=== PATIENT | female | born 1965 | race Caucasian/White ===

== ENCOUNTER 2016-05-25 23:28 | Inpatient (IN) | payer MEDICARE, OTHER ==
[~2016-05-25] VITALS: Ht 162.6 cm; Wt 176.0 kg
[2016-05-26 00:21] LABS: BASO % 1 % (0-3); EOS % 0 % (0-3); HEMATOCRIT 37.8 % (36.0-47.0); HEMOGLOBIN 12.3 g/dL (12.0-15.5); LYMPH % 22 % (24-48); MEAN CORPUSCULAR HEMOGLOBIN 30 pg (25-35); MEAN CORPUSCULAR HGB CONC 33 g/dL (31-37); MEAN CORPUSCULAR VOLUME 91 fL (79-100); MONO % 10 % (0-9); NEUT % 67 % (31-73); PLATELET COUNT 374 x10^3/uL (140-400); RED BLOOD COUNT 4.16 x10^6/uL (3.50-5.40); RED CELL DISTRIBUTION WIDTH 15.6 % (11.5-14.5); WHITE BLOOD COUNT 4.6 x10^3/uL (4.0-11.0)
[2016-05-26 00:28] LABS: BILIRUBIN,URINE NEGATIVE (NEG); GLUCOSE,URINE NEGATIVE (NEG); NITRITE,URINE NEGATIVE (NEG); PROTEIN,URINE 30 mg/dL (NEG-TRACE); UROBILINOGEN,URINE 0.2 mg/dL (0.2 mg/dL)
[2016-05-26] MEDS ORDERED: IV NORMAL SALINE 1000ML BAG 1,000 ML IV ONE (00:30)
[2016-05-26] MEDS ORDERED: KETOROLAC 15 MG/ML VIAL. IV ONE (00:30)
[2016-05-26] MEDS ORDERED: ONDANSETRON PF 4 MG/2 ML VIAL. IV ONE (00:30)
[2016-05-26 00:34] LABS: BACTERIA,URINE 0 /HPF (0-FEW); SQUAMOUS EPITHELIAL CELL,UR FEW /LPF; WBC,URINE 0 /HPF (0-4)
[2016-05-26 00:35] LABS: OBC FLU VALID
[2016-05-26 01:10] LABS: CALCIUM 8.8 mg/dL (8.5-10.1); CREATININE 3.6 mg/dL (0.6-1.0); GFR 13.2; POTASSIUM 3.7 mmol/L (3.5-5.1)
[2016-05-26 01:16] LABS: ALBUMIN 3.5 g/dL (3.4-5.0); TOTAL BILIRUBIN 0.2 mg/dL (0.2-1.0); TOTAL PROTEIN 6.9 g/dL (6.4-8.2)
[2016-05-26] MEDS ORDERED: ONDANSETRON PF 4 MG/2 ML VIAL. IV PRN ×2 (02:00→09:05)
[2016-05-26] MEDS ORDERED: ACETAMINOPHEN 325 MG TABLET. PO PRN (02:00)
[2016-05-26] MEDS: IV NORMAL SALINE 1000ML BAG 1,000 ML IV SCH ×3 (04:55→22:13)
--- NOTE | 2016-05-26 05:26 | PHYS DOC ---
Past Medical History Past Medical History: Depression, Fibromyalgia, Hypertension Additional Past Medical Histor: interstitial cystitis insomnia leg cramps urinary incontence Past Surgical History: Tubal ligation Additional Past Surgical Histo: left knee replacement lap. band sx Alcohol Use: None Drug Use: None Adult General Chief Complaint Chief Complaint: ANXIETY/PANIC ATTACK HPI HPI Patient is a 51 year old female with a history significant for hypertension, CHF, status post lap band who presents to the ER today complaining of feeling fuzzy, congested in her chest, having pain all over, feels dehydrated, decreased by mouth intake for several days, fevers to 103 at home, diarrhea, nonproductive cough. Patient denies any vomiting. Denies any dysuria frequency or urgency. Patient reports she's had decreased urinary output over the last couple days. Patient's primary care doctor is Dr. Judy Wright. Patient denies abdominal pain. Patient denies any chest pain. Patient's physical exam was remarkable for dry mucous membranes. Abdomen was soft nondistended no rebound or guarding. Patient is morbidly obese. Patient NABS.. Patient is alert awake oriented 3. Moving all extremities well. Nonfocal neuro exam. Patient's ER hospital course was significant for acute renal failure with hyponatremia. Patient's creatinine is greater than 3.0 and I do not have an old creatinine to compare with. Patient reports that she has been told that she has some mild kidney disease however she does not recall what her creatinine is. Patient was given IV fluids in the ER and will be admitted for hydration and evaluation of her elevated creatinine. This is a 51-year-old female who presents here today secondary to generalized malaise and dehydration who was found to have a significantly elevated creatinine. This may be secondary to dehydration versus primary renal disease. Patient was admitted to the hospital for further evaluation of her acute renal failure. Patient will be hydrated and her creatinine will be reassessed in the morning. Case was discussed with . Review of Systems Review of Systems Constitutional: Denies fever or chills [] Eyes: Denies change in visual acuity, redness, or eye pain [] All other review systems are negative except as documented in the history of present illness. Current Medications Current Medications Current Medications Medications (Trade) Dose Ordered Sig/Consuelo Start Time Stop Time Status Last Admin Dose Admin Ketorolac Tromethamine (Toradol) 15 mg 1X ONCE 05/26/16 00:30 05/26/16 00:31 DC 05/26/16 00:30 15 MG Ondansetron HCl (Zofran) 4 mg 1X ONCE 05/26/16 00:30 05/26/16 00:31 DC 05/26/16 00:30 4 MG Sodium Chloride (Iv Sodium Chloride 0.9% 1000ml Bag) 1,000 ml @ 1,000 mls/hr 1X ONCE 05/26/16 00:30 05/26/16 01:29 DC 05/26/16 00:30 1,000 MLS/HR Allergies Allergies Allergies Coded Allergies Type Severity Reaction Last Updated Verified No Known Drug Allergies 05/26/16 No Physical Exam Physical Exam Constitutional: Well developed, well nourished, no acute distress, non-toxic appearance. [] HENT: Normocephalic, atraumatic, bilateral external ears normal, oropharynx moist, no oral exudates, nose normal. [] Eyes: PERRLA, EOMI, conjunctiva normal, no discharge. [] Neck: Normal range of motion, no tenderness, supple, no stridor. [] Cardiovascular:Heart rate regular rhythm, no murmur [] Lungs & Thorax: Bilateral breath sounds clear to auscultation [] Abdomen: Bowel sounds normal, soft, no tenderness, no masses, no pulsatile masses. [] Skin: Warm, dry, no erythema, no rash. [] Back: No tenderness, no CVA tenderness. [] Extremities: No tenderness, no cyanosis, no clubbing, ROM intact, no edema. [] Neurologic: Alert and oriented X 3, normal motor function, normal sensory function, no focal deficits noted. [] Psychologic: Affect normal, judgement normal, mood normal. [] Current Patient Data Vital Signs Vital Signs Date Time Temp Pulse Resp B/P Pulse Ox O2 Delivery O2 Flow Rate FiO2 05/26/16 01:30 94 17 137/65 94 Room Air 05/26/16 00:03 98.5 98.5 Lab Values Laboratory Tests Test 05/26/16 00:05 05/26/16 00:40 White Blood Count 4.6x10^3/uL (4.0-11.0) Red Blood Count 4.16x10^6/uL (3.50-5.40) Hemoglobin 12.3g/dL (12.0-15.5) Hematocrit 37.8% (36.0-47.0) Mean Corpuscular Volume 91fL (79-100) Mean Corpuscular Hemoglobin 30pg (25-35) Mean Corpuscular Hemoglobin Concent 33g/dL (31-37) Red Cell Distribution Width 15.6% (11.5-14.5) H Platelet Count 374x10^3/uL (140-400) Neutrophils (%) (Auto) 67% (31-73) Lymphocytes (%) (Auto) 22% (24-48) L Monocytes (%) (Auto) 10% (0-9) H Eosinophils (%) (Auto) 0% (0-3) Basophils (%) (Auto) 1% (0-3) Neutrophils # (Auto) 3.1x10^3uL (1.8-7.7) Lymphocytes # (Auto) 1.0x10^3/uL (1.0-4.8) Monocytes # (Auto) 0.5x10^3/uL (0.0-1.1) Eosinophils # (Auto) 0.0x10^3/uL (0.0-0.7) Basophils # (Auto) 0.0x10^3/uL (0.0-0.2) Urine Collection Type U cath Urine Color Yellow Urine Clarity Turbid Urine pH 5.0 Urine Specific [place] 1.025 Urine Protein 30mg/dL (NEG-TRACE) Urine Glucose (UA) Negativemg/dL (NEG) Urine Ketones (Stick) Negativemg/dL (NEG) Urine Blood Moderate (NEG) Urine Nitrite Negative (NEG) Urine Bilirubin Negative (NEG) Urine Urobilinogen Dipstick 0.2mg/dL (0.2 mg/dL) Urine Leukocyte Esterase Negative (NEG) Urine RBC 3-5/HPF (0-2) Urine WBC 0/HPF (0-4) Urine Squamous Epithelial Cells Few/LPF Urine Amorphous Sediment Present/HPF Urine Bacteria 0/HPF (0-FEW) Urine Mucus Mod/LPF Influenza Type A Antigen Negative (NEGATIVE) Influenza Type B Antigen Negative (NEGATIVE) Sodium Level 130mmol/L (136-145) L Potassium Level 3.7mmol/L (3.5-5.1) Chloride Level 92mmol/L (98-107) L Carbon Dioxide Level 21mmol/L (21-32) Anion Gap 17 (6-14) H Blood Urea Nitrogen 42mg/dL (7-20) H Creatinine 3.6mg/dL (0.6-1.0) H Estimated GFR (Cockcroft-Gault) 13.2 BUN/Creatinine Ratio 12 (6-20) Glucose Level 129mg/dL (70-99) H Calcium Level 8.8mg/dL (8.5-10.1) Total Bilirubin 0.2mg/dL (0.2-1.0) Aspartate Amino Transferase (AST) 54U/L (15-37) H Alanine Aminotransferase (ALT) 47U/L (14-59) Alkaline Phosphatase 120U/L (46-116) H Total Protein 6.9g/dL (6.4-8.2) Albumin 3.5g/dL (3.4-5.0) Albumin/Globulin Ratio 1.0 (1.0-1.7) Laboratory Tests 05/26/16 00:05 Laboratory Tests 05/26/16 00:40 EKG EKG [] Radiology/Procedures Radiology/Procedures [] Course & Med Decision Making Course & Med Decision Making Pertinent Labs and Imaging studies reviewed. (See chart for details) [] Dragon Disclaimer Dragon Disclaimer This electronic medical record was generated, in whole or in part, using a voice recognition dictation system. Departure Departure Impression: Primary Impression: ARF (acute renal failure) Additional Impressions: Hyponatremia Dehydration Disposition: 09 ADMITTED INPATIENT Admitting Physician: Vianney Santos Condition: GUARDED Referrals: NO PCP (PCP) Problem Qualifiers TRAVIS RAZO MD May 26, 2016 05:26
--- NOTE | 2016-05-26 06:38 | EKG ---
[facility] [address] [place] [address] Test Date: 2016-05-25 Test Time: 23:37:30 Pat Name: EUGENE HERRERA Department: Room: 648 1 Gender: F System Development Engineer: : 1965 Requested By: DAVID ORTIZ Order Number: [id number] Reading MD: Sukhjinder Hallman Measurements Intervals [place] Rate: 95 P: 62 IA: 136 QRS: 4 QRSD: 78 T: -1 QT: 324 QTc: 410 Interpretive Statements SINUS RHYTHM NONSPECIFIC ST-T WAVE CHANGES. RI6.01 Unconfirmed report No previous ECG available for comparison Electronically Signed On 05-29-2016 13:52:34 RN ADVANCED by Sukhjinder Hallman
[2016-05-26 07:00] VITALS: BP 100/51
--- NOTE | 2016-05-26 07:31 | RAD ---
Exam performed: One view chest. Indication: cough x tonight Date of Service: 05/26/2016 2:09 AM Comparison: 05/26/16. Single AP upright portable view chest findings: Cardiomediastinal silhouette is within limits of normal. No acute infiltrates, effusion or pneumothorax is detected. Calcified lymph node in the right hilum. The bony structures are normal. Impression: No acute cardiopulmonary process is detected.
--- NOTE | 2016-05-26 07:58 | ACF ---
Admit Criteria Forms Admit Criteria Forms Admit Criteria Forms RENAL FAILURE, ACUTE Clinical Indications for Admission to Inpatient Care ( Place 'X' for any and all applicable criteria): Admission is indicated for ALL (if I & II) or III of the following [A](2)(3)(4)( 5)(6)(7): [X]I. Acute renal failure as indicated by ANY ONE of the following: [X]a) A 3-fold rise in serum creatinine from baseline [ ]b) Serum creatinine greater than 4 mg/dL (354 micromoles/L) with an acute rise greater than 0.5 mg/dL (44.2 micromoles/L) [ ]c) Reduction of more than 75% in estimated glomerular filtration rate from baseline [ ]d) Estimated glomerular filtration rate less than 35 mL/min/1.73m2 (0.59mL/sec/1.73m2)in a child up to 18 years of age [ ]e) Anuria indicated by ALL of the following: [ ]i) Adequate volume status [ ]ii) Cessation of urine output indicated by ANY ONE of the following: [ ]1) Urine output less than 0.3 mL/kg/hr for 24 hours [ ]2) Anuria (urine output less than 0.1 mL/kg/ hr) for 12 hours [X] II. Renal failure cannot be managed in an outpatient setting or observational care setting as indicating by ANY ONE of the following: [ ]a) Altered mental status that is severe or persistent [ ]b) Volume overload or Respiratory distress (eg, clinically significant pulmonary edema) that is severe or persistent [ ]c) Cardiac arrhythmias of immediate concern [ ]d) Hemodynamic instability [ ]e) Clinically significant electrolyte abnormality that requires inpatient care (eg, hyperkalemia with severe ECG findings)[B] [ ]f) Clinically significant metabolic abnormality (eg, acidosis) that is severe or persistent [ ]g) Acute treatment of renal failure (eg, renal replacement therapy) not feasible or appropriate in observational care setting [ ]h) Clinical situation too unstable or uncertain (eg, inadequate urine output, ongoing decline in renal function, etiology unclear) [ ]i) Necessary support and caregiver ability to comply with outpatient treatment cannot be arranged in observation care timeframe (eg, within 24 hours) [X]j) Other significant finding or clinical condition judged not to be within scope of observation care [ ]III.General contraindications and/or Inappropriate clinical situations for Observational Care in patients with Acute Renal Failure, when ANY ONE of the following is required: [ ]a) Prediction of prolongation of LOS based on ANY ONE of the following may be considered as a contraindication for observational care 2, 3, 4, 5, 6, 7, 8 , 9, 10, 11 [ ]i) Age > 65 yrs. [ ]ii) Patient arriving by ambulance [ ]iii) Patient with high acuity [ ]iv) Patient requiring vital sign monitoring [ ]v) Patient on IV medication [ ]b) Systolic blood pressures 180mmHg 3,12 [ ]c) Patient with altered mental status including delirium and other alteration of consciousness, (3) [ ]d) Patient whose discharge disposition will be to a shelter home or rehabilitation home should not be managed in Emergency Department Observation Unit. CMS rule requires 3 days hospital stay before such placement.3,13 [ ]e) Patient with failure to thrive due to broad array of etiologies 3, 16,17 [ ]f) Inability to ambulate 3,14 Extended stay beyond goal length of stay may be needed for(13) [ ]a) Continuing uremic complications [ ]b) Care for comorbidities [ ]c) acute renal failure [ ]d) Need for dialysis The original [employer] content created by [employer] has been revised. The portions of the content which have been revised are identified through the use of italic text or in bold, and [facility] has neither reviewed nor approved the modified material. All other unmodified content is copyright [employer]. Please see references footnoted in the original [employer] edition 2016 VIANCA CHU May 26, 2016 07:58
[2016-05-26] MEDS ORDERED: DESV100T PO (08:48)
[2016-05-26] MEDS ORDERED: PARO20TA55 PO (08:49)
[2016-05-26] MEDS ORDERED: OMEP20TA63 PO (09:02)
[2016-05-26] MEDS ORDERED: HYDR-2672 PO (09:02)
[2016-05-26] MEDS ORDERED: DILT120C97 PO (09:02)
[2016-05-26] MEDS ORDERED: GABA-586 PO (09:02)
[2016-05-26] MEDS ORDERED: DEXT5TAB27 PO (09:02)
[2016-05-26] MEDS ORDERED: ALPR2TAB2 PO (09:02)
[2016-05-26] MEDS ORDERED: GABA600T2 PO ×2 (09:02)
[2016-05-26] MEDS ORDERED: LISI1TAB7 PO (09:02)
[2016-05-26] MEDS ORDERED: ARIP5TAB6 PO (09:02)
[2016-05-26] MEDS ORDERED: CARI250T PO (09:02)
[2016-05-26] MEDS ORDERED: ZOLP5TAB PO (09:02)
[2016-05-26] MEDS ORDERED: MIRT45TA3 PO (09:02)
[2016-05-26] MEDS ORDERED: TRAZ300T2 PO (09:02)
[2016-05-26] MEDS ORDERED: ALPRAZOLAM 1 MG TABLET PO PRN (09:30)
[2016-05-26] MEDS ORDERED: CARISOPRODOL 350 MG TABLET PO PRN (09:30)
[2016-05-26] MEDS: DESVENLAFAXINE 50 MG TAB.ER.24H. PO SCH (09:50)
[2016-05-26] MEDS: DILTIAZEM HCL 120 MG CAP.ER.24H PO SCH (09:50)
[2016-05-26] MEDS: GABAPENTIN 300 MG CAPSULE. PO SCH ×3 (09:50→20:12)
[2016-05-26] MEDS: PANTOPRAZOLE 40 MG TABLET. PO SCH (09:50)
[2016-05-26] MEDS: HYDROCODONE/APAP 10/325 TABLET. PO PRN ×3 (09:50→20:12)
[2016-05-26] MEDS: PAROXETINE 20 MG TABLET. PO SCH (09:50)
[2016-05-26 11:00] VITALS: BP 107/40
--- NOTE | 2016-05-26 11:55 | PDOC1 ---
History and Physical Date of Admission Date of Admission DATE: 05/26/16 TIME: 11:47 Identification/Chief Complaint Chief Complaint chills at home Source Source: Chart review, Patient History of Present Illness History of Present Illness 51 y.o F morbidly obese comes in bec she thinks she has "another episode of her interstitial cystitis". She started to have cystitis in 2009 and she would " know when it was coming", would have chills, and urinary incontinence. She has a bedside commode. She claims he gets so weak she cant stand up and leave home to go to urgent care, HEr roomate called 911 after coaxing. LAbs DO NOT show UTI but did show gap acidosis with gap 17. 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 rajesh Na 130s, but need to document UOP > 3 L a day and test of choice would be water deprivation test then check urine osm Past Medical History Renal/: Hematuria, Other (interstitial nephritis) Past Surgical History Past Surgical History: No pertinent history Family History Family History: No Significant Social History Smoke: No ALCOHOL: none Drugs: None Current Problem List Problem List Problems Medical Problems: (1) ARF (acute renal failure) Status: Acute (2) Dehydration Status: Acute (3) Hyponatremia Status: Acute Problems: Current Medications Current Medications Current Medications Sodium Chloride (Iv Sodium Chloride 0.9% 1000ml Bag) 1,000 ml @ 1,000 mls/hr 1X ONCE IV Last administered on 05/26/16 00:30; Start 05/26/16 at 00:30; Stop 05/26/16 at 01:29; Status DC Ondansetron HCl (Zofran) 4 mg 1X ONCE IV Last administered on 05/26/16 00:30; Start 05/26/16 at 00:30; Stop 05/26/16 at 00:31; Status DC Ketorolac Tromethamine (Toradol) 15 mg 1X ONCE IV Last administered on 00:30; Start 05/26/16 at 00:30; Stop 05/26/16 at 00:31; Status DC Ondansetron HCl 4 mg 4 mg PRN Q8HRS PRN IV NAUSEA/VOMITING; Start 05/26/16 at 02 :00; Stop 05/26/16 at 09:07; Status DC Sodium Chloride (Iv Sodium Chloride 0.9% 1000ml Bag) 1,000 ml @ 125 mls/hr Q8H IV Last administered on 05/26/16 04:55; Start 05/26/16 at 01:58; Stop 05/27/16 at 01:57 Acetaminophen (Tylenol) 650 mg PRN Q4HRS PRN PO FEVER; Start 05/26/16 at 02:00; Stop 05/27/16 at 01:59 Ondansetron HCl (Zofran) 4 mg PRN Q6HRS PRN IV NAUSEA/VOMITING; Start 05/26/16 at 09:05 Aripiprazole (Abilify) 5 mg QHS PO ; Start 05/26/16 at 21:00 Diltiazem HCl (Cardizem 24hr Cd) 120 mg DAILY PO Last administered on 05/26/16 09:50; Start 05/26/16 at 10:00 Gabapentin (Neurontin) 300 mg BID@09,15 PO Last administered on 05/26/16 09:50 ; Start 05/26/16 at 10:00 Acetaminophen/ Hydrocodone Bitart (Lortab 10/325) 1 tab PRN Q6HRS PRN PO PAIN Last administered on 05/26/16 09:50; Start 05/26/16 at 09:15 Paroxetine HCl (Paxil) 20 mg DAILY PO Last administered on 05/26/16 09:50; Start 05/26/16 at 10:00 Zolpidem Tartrate (Ambien) 5 mg QHS PO ; Start 05/26/16 at 21:00 Alprazolam (Xanax) 2 mg PRN BID PRN PO ANXIETY / AGITATION; Start 05/26/16 at 09 :30 Carisoprodol (Soma) 350 mg PRN 1X PRN PO MUSCLE SPASMS; Start 05/26/16 at 09:30 Desvenlafaxine Succinate (Pristiq Er) 100 mg DAILY PO Last administered on 09:50; Start 05/26/16 at 10:00 Non-Formulary Medication 5 mg BID PO ; Start 05/26/16 at 21:00; Status UNV Gabapentin (Neurontin) 600 mg QHS PO ; Start 05/26/16 at 21:00 Mirtazapine (Remeron) 45 mg QHS PO ; Start 05/26/16 at 21:00 Pantoprazole Sodium (Protonix) 40 mg DAILYAC PO Last administered on 05/26/16t 09:50; Start 05/26/16 at 10:00 Trazodone HCl (Desyrel) 300 mg QHS PO ; Start 05/26/16 at 21:00 Active Scripts Active Reported Abilify (Aripiprazole) 5 Mg Tablet 5 Mg PO QHS Soma (Carisoprodol) 250 Mg Tablet 250 Mg PO 1X PRN PRN Ambien (Zolpidem Tartrate) 5 Mg Tablet 1 Tab PO QHS Trazodone Hcl 300 Mg Tablet 1 Tab PO QHS Mirtazapine 45 Mg Tablet 1 Tab PO QHS Gabapentin 600 Mg Tablet 600 Mg PO QHS Gabapentin 300 Mg Capsule 300 Mg PO BID Xanax (Alprazolam) 2 Mg Tablet 1 Tab PO BID PRN Hydrocodone-Apap 10-325 (Hydrocodone Bit/Acetaminophen) 1 Each Tablet 1 Tab PO PRN Q6HRS PRN Adderall 5 Mg Tablet (Dextroamphetamine/Amphetamine) 5 Mg Tablet 5 Mg PO BID Prilosec Otc (Omeprazole Magnesium) 20 Mg Tablet.dr 1 Tab PO DAILY Diltiazem 24HR Cd (Diltiazem Hcl) 120 Mg Cap.er.24h 1 Cap PO DAILY Lisinopril-Hctz 20-25 Mg Tab (Lisinopril/Hydrochlorothiazide) 1 Each Tablet 1 Tab PO DAILY Paxil (Paroxetine Hcl) 20 Mg Tablet 1 Tab PO DAILY Pristiq Er (Desvenlafaxine Succinate) 100 Mg Tab.er.24h 1 Tab PO DAILY Allergies Allergies: Coded Allergies: No Known Drug Allergies (Unverified , 05/26/16) ROS General: YES: Chills PSYCHOLOGICAL ROS: No: Anxiety, Behavioral Disorder, Concentration difficultie , Decreased libido, Depression, Disorientation, Hallucinations, Hostility, Irritablity, Memory difficulties, Mood Swings, Obsessive thoughts, Other, Physical abuse, Sexual abuse, Sleep disturbances, Suicidal ideation Eyes: No Blurry vision, No Decreased vision, No Double vision, No Dry eyes, No Excessive tearing, No Eye Pain, No Itchy Eyes, No Loss of vision, No Other, No Photophobia, No Scotomata, No Uses contacts, No Uses glasses HEENT: No: Epistaxis, Heacaches, Hearing change, Nasal congestion, Nasal discharge, Oral lesions, Other, Sinus pain, Sneezing, Snoring, Sore Throat, Tinnitus, Vertigo, Visual Changes, Vocal changes ALLERGY AND IMMUNOLOGY: No: Hives, Insect Bite Sensitivity, Itchy/Watery Eyes, Nasal Congestion, Other, Post Nasal Drip, Seasonal Allergies Hematological and Lymphatic: No: Bleeding Problems, Blood Clots, Blood Transfusions, Brusing, Night Sweats, Other, Pallor, Swollen Lymph Nodes ENDOCRINE: No: Breast Changes, Galactorrhea, Hair Pattern Changes, Hot Flashes , Malaise/lethargy, Mood Swings, Other, Palpitations, Polydipsia/polyuria, Skin Changes, Temperature Intolerance, Unexpected Weight Changes Respiratory: No: Cough, Hemoptysis, Orthopnea, Other, Pleuritic Pain, SOB with excertion, Shortness of breath, Sputum Changes, Stridor, Tachypnea, Wheezing Cardiovascular: No Chest Pain, No Edema, No Lt Headedness, No Orthopnea, No Other, No Palpitations, No Paroxysmal Noc. Dyspnea Gastrointestinal: No Abdominal Pain, No Constipation, No Diarrhea, No Hematochezia, No Melena, No Nausea, No Other, No Vomiting Genitourinary: YES Other (polyuria) Neurological: No Behavorial Changes, No Bowel/Bladder ControlChng, No Confusion , No Dizziness, No Gait Disturbance, No Headaches, No Impaired Coord/balance, No Memory Loss, No Numbness/Tingling, No Other, No Seizures, No Speech Problems , No Tremors, No Visual Changes, No Weakness Skin: No Acne, No Dry Skin, No Eczema, No Hair Changes, No Lumps, No Mole Changes, No Mottling, No Nail Changes, No Other, No Pruritus, No Rash, No Skin Lesion Changes Physical Exam General: Alert, Oriented X3, Cooperative, No acute distress, Other (morbidly obese) HEENT: Atraumatic, PERRLA Lungs: Clear to auscultation Heart: S1S2 Cardiovascular: S1, S2 Breasts: Normal Abdomen: Normal bowel sounds, Soft, No tenderness, No hepatosplenomegaly, No masses Male Genitals Exam: normal genitalia, normal prostate Rectal Exam: not examined PELVIC: Nml ext genitalia Extremities: No clubbing, No cyanosis, No edema, Normal pulses, No tenderness/ swelling Skin: No rashes, No breakdown, No significant lesion Neuro: Normal gait, Normal speech, Strength at 5/5 X4 ext, Normal tone, Sensation intact, Cranial nerves 3-12 NL, Reflexes 2+ Psych/Mental Status: Mental status NL, Mood NL Vitals Vitals Vital Signs Date Time Temp Pulse Resp B/P Pulse Ox O2 Delivery O2 Flow Rate FiO2 05/26/16 09:50 94 Room Air 05/26/16 09:50 91 100/51 05/26/16 07:00 97.7 20 97.7 Labs Labs Laboratory Tests Test 05/26/16 00:05 05/26/16 00:40 White Blood Count 4.6x10^3/uL (4.0-11.0) Red Blood Count 4.16x10^6/uL (3.50-5.40) Hemoglobin 12.3g/dL (12.0-15.5) Hematocrit 37.8% (36.0-47.0) Mean Corpuscular Volume 91fL (79-100) Mean Corpuscular Hemoglobin 30pg (25-35) Mean Corpuscular Hemoglobin Concent 33g/dL (31-37) Red Cell Distribution Width 15.6% (11.5-14.5) Platelet Count 374x10^3/uL (140-400) Neutrophils (%) (Auto) 67% (31-73) Lymphocytes (%) (Auto) 22% (24-48) Monocytes (%) (Auto) 10% (0-9) Eosinophils (%) (Auto) 0% (0-3) Basophils (%) (Auto) 1% (0-3) Neutrophils # (Auto) 3.1x10^3uL (1.8-7.7) Lymphocytes # (Auto) 1.0x10^3/uL (1.0-4.8) Monocytes # (Auto) 0.5x10^3/uL (0.0-1.1) Eosinophils # (Auto) 0.0x10^3/uL (0.0-0.7) Basophils # (Auto) 0.0x10^3/uL (0.0-0.2) Urine Collection Type U cath Urine Color Yellow Urine Clarity Turbid Urine pH 5.0 Urine Specific [place] 1.025 Urine Protein 30mg/dL (NEG-TRACE) Urine Glucose (UA) Negativemg/dL (NEG) Urine Ketones (Stick) Negativemg/dL (NEG) Urine Blood Moderate (NEG) Urine Nitrite Negative (NEG) Urine Bilirubin Negative (NEG) Urine Urobilinogen Dipstick 0.2mg/dL (0.2 mg/dL) Urine Leukocyte Esterase Negative (NEG) Urine RBC 3-5/HPF (0-2) Urine WBC 0/HPF (0-4) Urine Squamous Epithelial Cells Few/LPF Urine Amorphous Sediment Present/HPF Urine Bacteria 0/HPF (0-FEW) Urine Mucus Mod/LPF Influenza Type A Antigen Negative (NEGATIVE) Influenza Type B Antigen Negative (NEGATIVE) Sodium Level 130mmol/L (136-145) Potassium Level 3.7mmol/L (3.5-5.1) Chloride Level 92mmol/L (98-107) Carbon Dioxide Level 21mmol/L (21-32) Anion Gap 17 (6-14) Blood Urea Nitrogen 42mg/dL (7-20) Creatinine 3.6mg/dL (0.6-1.0) Estimated GFR (Cockcroft-Gault) 13.2 BUN/Creatinine Ratio 12 (6-20) Glucose Level 129mg/dL (70-99) Calcium Level 8.8mg/dL (8.5-10.1) Total Bilirubin 0.2mg/dL (0.2-1.0) Aspartate Amino Transf (AST/SGOT) 54U/L (15-37) Alanine Aminotransferase (ALT/SGPT) 47U/L (14-59) Alkaline Phosphatase 120U/L (46-116) Total Protein 6.9g/dL (6.4-8.2) Albumin 3.5g/dL (3.4-5.0) Albumin/Globulin Ratio 1.0 (1.0-1.7) Laboratory Tests Test 05/26/16 00:05 05/26/16 00:40 White Blood Count 4.6x10^3/uL (4.0-11.0) Red Blood Count 4.16x10^6/uL (3.50-5.40) Hemoglobin 12.3g/dL (12.0-15.5) Hematocrit 37.8% (36.0-47.0) Mean Corpuscular Volume 91fL (79-100) Mean Corpuscular Hemoglobin 30pg (25-35) Mean Corpuscular Hemoglobin Concent 33g/dL (31-37) Red Cell Distribution Width 15.6% (11.5-14.5) Platelet Count 374x10^3/uL (140-400) Neutrophils (%) (Auto) 67% (31-73) Lymphocytes (%) (Auto) 22% (24-48) Monocytes (%) (Auto) 10% (0-9) Eosinophils (%) (Auto) 0% (0-3) Basophils (%) (Auto) 1% (0-3) Neutrophils # (Auto) 3.1x10^3uL (1.8-7.7) Lymphocytes # (Auto) 1.0x10^3/uL (1.0-4.8) Monocytes # (Auto) 0.5x10^3/uL (0.0-1.1) Eosinophils # (Auto) 0.0x10^3/uL (0.0-0.7) Basophils # (Auto) 0.0x10^3/uL (0.0-0.2) Urine Collection Type U cath Urine Color Yellow Urine Clarity Turbid Urine pH 5.0 Urine Specific [place] 1.025 Urine Protein 30mg/dL (NEG-TRACE) Urine Glucose (UA) Negativemg/dL (NEG) Urine Ketones (Stick) Negativemg/dL (NEG) Urine Blood Moderate (NEG) Urine Nitrite Negative (NEG) Urine Bilirubin Negative (NEG) Urine Urobilinogen Dipstick 0.2mg/dL (0.2 mg/dL) Urine Leukocyte Esterase Negative (NEG) Urine RBC 3-5/HPF (0-2) Urine WBC 0/HPF (0-4) Urine Squamous Epithelial Cells Few/LPF Urine Amorphous Sediment Present/HPF Urine Bacteria 0/HPF (0-FEW) Urine Mucus Mod/LPF Influenza Type A Antigen Negative (NEGATIVE) Influenza Type B Antigen Negative (NEGATIVE) Sodium Level 130mmol/L (136-145) Potassium Level 3.7mmol/L (3.5-5.1) Chloride Level 92mmol/L (98-107) Carbon Dioxide Level 21mmol/L (21-32) Anion Gap 17 (6-14) Blood Urea Nitrogen 42mg/dL (7-20) Creatinine 3.6mg/dL (0.6-1.0) Estimated GFR (Cockcroft-Gault) 13.2 BUN/Creatinine Ratio 12 (6-20) Glucose Level 129mg/dL (70-99) Calcium Level 8.8mg/dL (8.5-10.1) Total Bilirubin 0.2mg/dL (0.2-1.0) Aspartate Amino Transf (AST/SGOT) 54U/L (15-37) Alanine Aminotransferase (ALT/SGPT) 47U/L (14-59) Alkaline Phosphatase 120U/L (46-116) Total Protein 6.9g/dL (6.4-8.2) Albumin 3.5g/dL (3.4-5.0) Albumin/Globulin Ratio 1.0 (1.0-1.7) VTE Prophylaxis Ordered VTE Prophylaxis Devices: Yes VTE Pharmacological Prophylaxi: Yes Assessment/Plan Assessment/Plan 1. HYponatremia 2, Gap metabolic acidosis 3. Acute renal failure unknown if existing CKD 4. Morbid obesity 5. Hx interstitial cystitis - urine is clean 6. Polyuria, 7. Primary polydipsa? PLAn; Check Usom but getting IVF NS - might alter results? Consult renal Hold HCTZ and lisinoprilAdd pT/OT - limited mobility LAbs again JOSE Harden MD May 26, 2016 11:55
--- NOTE | 2016-05-26 12:59 | PDOC2 ---
CONSULT Date of Consult Date of Consult DATE: 05/26/16 TIME: 12:53 Reason for Consult Reason for Consult: SHAUNA Referring Physician Referring Physician: ANGEL Identification/Chief Complaint Chief Complaint WEAKNESS, ANXIETY, FEELING DEHYDRATED Source Source: Chart review, Patient History of Present Illness Reason for Visit: THIS IS A 51 YR OLD ADMITTED WITH WEAKNESS, DEHYDRATION AND ANXIETY. SHE ALSO THINKS SHE HAS INTERSTITIAL CYSTITIS. SHE HAS HAD THIS IN THE PAST. HER UA IS NEG. BUT HER CR IS 3.9. STATED THAT SHE WAS TOLD SHE HAD SOME KIDNEY DZ BUT WE HAVE NO BASELINE CR LEVELS. NO NSAID USE NOTED Past Medical History Renal/: Hematuria, Other (interstitial nephritis) Past Surgical History Past Surgical History: No pertinent history Family History Family History: No Significant Social History No ALCOHOL: none Drugs: None Current Problem List Problem List Problems Medical Problems: (1) ARF (acute renal failure) Status: Acute (2) Dehydration Status: Acute (3) Hyponatremia Status: Acute Current Medications Current Medications Current Medications Sodium Chloride (Iv Sodium Chloride 0.9% 1000ml Bag) 1,000 ml @ 1,000 mls/hr 1X ONCE IV Last administered on 05/26/16 00:30; Start 05/26/16 at 00:30; Stop 05/26/16 at 01:29; Status DC Ondansetron HCl (Zofran) 4 mg 1X ONCE IV Last administered on 05/26/16 00:30; Start 05/26/16 at 00:30; Stop 05/26/16 at 00:31; Status DC Ketorolac Tromethamine (Toradol) 15 mg 1X ONCE IV Last administered on 00:30; Start 05/26/16 at 00:30; Stop 05/26/16 at 00:31; Status DC Ondansetron HCl 4 mg 4 mg PRN Q8HRS PRN IV NAUSEA/VOMITING; Start 05/26/16 at 02 :00; Stop 05/26/16 at 09:07; Status DC Sodium Chloride (Iv Sodium Chloride 0.9% 1000ml Bag) 1,000 ml @ 125 mls/hr Q8H IV Last administered on 05/26/16 04:55; Start 05/26/16 at 01:58; Stop 05/27/16 at 01:57 Acetaminophen (Tylenol) 650 mg PRN Q4HRS PRN PO FEVER; Start 05/26/16 at 02:00; Stop 05/27/16 at 01:59 Ondansetron HCl (Zofran) 4 mg PRN Q6HRS PRN IV NAUSEA/VOMITING; Start 05/26/16 at 09:05 Aripiprazole (Abilify) 5 mg QHS PO ; Start 05/26/16 at 21:00 Diltiazem HCl (Cardizem 24hr Cd) 120 mg DAILY PO Last administered on 05/26/16 09:50; Start 05/26/16 at 10:00 Gabapentin (Neurontin) 300 mg BID@,15 PO Last administered on 05/26/16 09:50 ; Start 05/26/16 at 10:00 Acetaminophen/ Hydrocodone Bitart (Lortab 10/325) 1 tab PRN Q6HRS PRN PO PAIN Last administered on 05/26/16 09:50; Start 05/26/16 at 09:15 Paroxetine HCl (Paxil) 20 mg DAILY PO Last administered on 05/26/16 09:50; Start 05/26/16 at 10:00 Zolpidem Tartrate (Ambien) 5 mg QHS PO ; Start 05/26/16 at 21:00 Alprazolam (Xanax) 2 mg PRN BID PRN PO ANXIETY / AGITATION; Start 05/26/16 at 09 :30 Carisoprodol (Soma) 350 mg PRN 1X PRN PO MUSCLE SPASMS; Start 05/26/16 at 09:30 Desvenlafaxine Succinate (Pristiq Er) 100 mg DAILY PO Last administered on 09:50; Start 05/26/16 at 10:00 Non-Formulary Medication 5 mg BID PO ; Start 05/26/16 at 21:00; Status UNV Gabapentin (Neurontin) 600 mg QHS PO ; Start 05/26/16 at 21:00 Mirtazapine (Remeron) 45 mg QHS PO ; Start 05/26/16 at 21:00 Pantoprazole Sodium (Protonix) 40 mg DAILYAC PO Last administered on 05/26/16 09:50; Start 05/26/16 at 10:00 Trazodone HCl (Desyrel) 300 mg QHS PO ; Start 05/26/16 at 21:00 Active Scripts Active Reported Abilify (Aripiprazole) 5 Mg Tablet 5 Mg PO QHS Soma (Carisoprodol) 250 Mg Tablet 250 Mg PO 1X PRN PRN Ambien (Zolpidem Tartrate) 5 Mg Tablet 1 Tab PO QHS Trazodone Hcl 300 Mg Tablet 1 Tab PO QHS Mirtazapine 45 Mg Tablet 1 Tab PO QHS Gabapentin 600 Mg Tablet 600 Mg PO QHS Gabapentin 300 Mg Capsule 300 Mg PO BID Xanax (Alprazolam) 2 Mg Tablet 1 Tab PO BID PRN Hydrocodone-Apap 10-325 (Hydrocodone Bit/Acetaminophen) 1 Each Tablet 1 Tab PO PRN Q6HRS PRN Adderall 5 Mg Tablet (Dextroamphetamine/Amphetamine) 5 Mg Tablet 5 Mg PO BID Prilosec Otc (Omeprazole Magnesium) 20 Mg Tablet.dr 1 Tab PO DAILY Diltiazem 24HR Cd (Diltiazem Hcl) 120 Mg Cap.er.24h 1 Cap PO DAILY Lisinopril-Hctz 20-25 Mg Tab (Lisinopril/Hydrochlorothiazide) 1 Each Tablet 1 Tab PO DAILY Paxil (Paroxetine Hcl) 20 Mg Tablet 1 Tab PO DAILY Pristiq Er (Desvenlafaxine Succinate) 100 Mg Tab.er.24h 1 Tab PO DAILY Allergies Allergies: Coded Allergies: No Known Drug Allergies (Unverified , 05/26/16) ROS General: YES: Appetite, Fatigue, Malaise PSYCHOLOGICAL ROS: YES: Anxiety Eyes: Yes Decreased vision HEENT: YES: Heacaches ALLERGY AND IMMUNOLOGY: YES: Hives Respiratory: YES: Cough Gastrointestinal: Yes Constipation Genitourinary: YES Other Musculoskeletal: Yes Muscular Weakness Neurological: Yes Weakness Skin: Yes Dry Skin Physical Exam General: Alert, Cooperative HEENT: Atraumatic, PERRLA Lungs: Clear to auscultation Heart: Regular rate, Normal S1, Normal S2 Abdomen: Normal bowel sounds, Soft, No tenderness Extremities: No clubbing Skin: No breakdown Neuro: Normal speech Psych/Mental Status: Mental status NL, Mood NL MUSCULOSKELETAL: No deformity, No swelling Vitals VITALS Vital Signs Date Time Temp Pulse Resp B/P Pulse Ox O2 Delivery O2 Flow Rate FiO2 05/26/16 09:50 94 Room Air 05/26/16 09:50 91 100/51 05/26/16 07:00 97.7 20 97.7 Labs Labs Laboratory Tests Test 05/26/16 00:05 05/26/16 00:40 White Blood Count 4.6x10^3/uL (4.0-11.0) Red Blood Count 4.16x10^6/uL (3.50-5.40) Hemoglobin 12.3g/dL (12.0-15.5) Hematocrit 37.8% (36.0-47.0) Mean Corpuscular Volume 91fL (79-100) Mean Corpuscular Hemoglobin 30pg (25-35) Mean Corpuscular Hemoglobin Concent 33g/dL (31-37) Red Cell Distribution Width 15.6% (11.5-14.5) Platelet Count 374x10^3/uL (140-400) Neutrophils (%) (Auto) 67% (31-73) Lymphocytes (%) (Auto) 22% (24-48) Monocytes (%) (Auto) 10% (0-9) Eosinophils (%) (Auto) 0% (0-3) Basophils (%) (Auto) 1% (0-3) Neutrophils # (Auto) 3.1x10^3uL (1.8-7.7) Lymphocytes # (Auto) 1.0x10^3/uL (1.0-4.8) Monocytes # (Auto) 0.5x10^3/uL (0.0-1.1) Eosinophils # (Auto) 0.0x10^3/uL (0.0-0.7) Basophils # (Auto) 0.0x10^3/uL (0.0-0.2) Urine Collection Type U cath Urine Color Yellow Urine Clarity Turbid Urine pH 5.0 Urine Specific [place] 1.025 Urine Protein 30mg/dL (NEG-TRACE) Urine Glucose (UA) Negativemg/dL (NEG) Urine Ketones (Stick) Negativemg/dL (NEG) Urine Blood Moderate (NEG) Urine Nitrite Negative (NEG) Urine Bilirubin Negative (NEG) Urine Urobilinogen Dipstick 0.2mg/dL (0.2 mg/dL) Urine Leukocyte Esterase Negative (NEG) Urine RBC 3-5/HPF (0-2) Urine WBC 0/HPF (0-4) Urine Squamous Epithelial Cells Few/LPF Urine Amorphous Sediment Present/HPF Urine Bacteria 0/HPF (0-FEW) Urine Mucus Mod/LPF Influenza Type A Antigen Negative (NEGATIVE) Influenza Type B Antigen Negative (NEGATIVE) Sodium Level 130mmol/L (136-145) Potassium Level 3.7mmol/L (3.5-5.1) Chloride Level 92mmol/L (98-107) Carbon Dioxide Level 21mmol/L (21-32) Anion Gap 17 (6-14) Blood Urea Nitrogen 42mg/dL (7-20) Creatinine 3.6mg/dL (0.6-1.0) Estimated GFR (Cockcroft-Gault) 13.2 BUN/Creatinine Ratio 12 (6-20) Glucose Level 129mg/dL (70-99) Calcium Level 8.8mg/dL (8.5-10.1) Total Bilirubin 0.2mg/dL (0.2-1.0) Aspartate Amino Transf (AST/SGOT) 54U/L (15-37) Alanine Aminotransferase (ALT/SGPT) 47U/L (14-59) Alkaline Phosphatase 120U/L (46-116) Total Protein 6.9g/dL (6.4-8.2) Albumin 3.5g/dL (3.4-5.0) Albumin/Globulin Ratio 1.0 (1.0-1.7) Laboratory Tests Test 05/26/16 00:05 05/26/16 00:40 White Blood Count 4.6x10^3/uL (4.0-11.0) Red Blood Count 4.16x10^6/uL (3.50-5.40) Hemoglobin 12.3g/dL (12.0-15.5) Hematocrit 37.8% (36.0-47.0) Mean Corpuscular Volume 91fL (79-100) Mean Corpuscular Hemoglobin 30pg (25-35) Mean Corpuscular Hemoglobin Concent 33g/dL (31-37) Red Cell Distribution Width 15.6% (11.5-14.5) Platelet Count 374x10^3/uL (140-400) Neutrophils (%) (Auto) 67% (31-73) Lymphocytes (%) (Auto) 22% (24-48) Monocytes (%) (Auto) 10% (0-9) Eosinophils (%) (Auto) 0% (0-3) Basophils (%) (Auto) 1% (0-3) Neutrophils # (Auto) 3.1x10^3uL (1.8-7.7) Lymphocytes # (Auto) 1.0x10^3/uL (1.0-4.8) Monocytes # (Auto) 0.5x10^3/uL (0.0-1.1) Eosinophils # (Auto) 0.0x10^3/uL (0.0-0.7) Basophils # (Auto) 0.0x10^3/uL (0.0-0.2) Urine Collection Type U cath Urine Color Yellow Urine Clarity Turbid Urine pH 5.0 Urine Specific [place] 1.025 Urine Protein 30mg/dL (NEG-TRACE) Urine Glucose (UA) Negativemg/dL (NEG) Urine Ketones (Stick) Negativemg/dL (NEG) Urine Blood Moderate (NEG) Urine Nitrite Negative (NEG) Urine Bilirubin Negative (NEG) Urine Urobilinogen Dipstick 0.2mg/dL (0.2 mg/dL) Urine Leukocyte Esterase Negative (NEG) Urine RBC 3-5/HPF (0-2) Urine WBC 0/HPF (0-4) Urine Squamous Epithelial Cells Few/LPF Urine Amorphous Sediment Present/HPF Urine Bacteria 0/HPF (0-FEW) Urine Mucus Mod/LPF Influenza Type A Antigen Negative (NEGATIVE) Influenza Type B Antigen Negative (NEGATIVE) Sodium Level 130mmol/L (136-145) Potassium Level 3.7mmol/L (3.5-5.1) Chloride Level 92mmol/L (98-107) Carbon Dioxide Level 21mmol/L (21-32) Anion Gap 17 (6-14) Blood Urea Nitrogen 42mg/dL (7-20) Creatinine 3.6mg/dL (0.6-1.0) Estimated GFR (Cockcroft-Gault) 13.2 BUN/Creatinine Ratio 12 (6-20) Glucose Level 129mg/dL (70-99) Calcium Level 8.8mg/dL (8.5-10.1) Total Bilirubin 0.2mg/dL (0.2-1.0) Aspartate Amino Transf (AST/SGOT) 54U/L (15-37) Alanine Aminotransferase (ALT/SGPT) 47U/L (14-59) Alkaline Phosphatase 120U/L (46-116) Total Protein 6.9g/dL (6.4-8.2) Albumin 3.5g/dL (3.4-5.0) Albumin/Globulin Ratio 1.0 (1.0-1.7) Assessment/Plan Assessment/Plan IMP SHAUNA WITH CR OF 3.9 PROB CKD UNKNOWN STAGE DEHYDRATION ANXIETY HYPONATREMIA PLAN [facility] LISINOPRIL AND HCTZ ANN SONOGRAM JONATAN SHIELDS MD May 26, 2016 12:59
[2016-05-26 15:00] VITALS: BP 117/49
[2016-05-26] MEDS ORDERED: GUAIFENESIN DM 200MG/20MG 10 ML SYRUP. PO PRN (16:30)
[2016-05-26] MEDS: GUAIFENESIN DM 200MG/20MG 10 ML SYRUP. PO SCH ×2 (17:30→20:11)
[2016-05-26 19:00] VITALS: BP 124/67
[2016-05-26] MEDS: MIRTAZAPINE 15 MG TABLET PO SCH (20:11)
[2016-05-26] MEDS: ZOLPIDEM 5 MG TABLET. PO SCH (20:12)
[2016-05-26] MEDS: ARIPIPRAZOLE 5 MG TABLET. PO SCH (20:12)
[2016-05-26] MEDS: traZODone 100 MG TABLET. PO SCH (20:12)
[2016-05-26] MEDS ORDERED: AMPHETAMINE PO SCH (21:00)
[2016-05-26] MEDS ORDERED: DEXTROAMPHETAMINE PO SCH (21:00)
[2016-05-26 23:00] VITALS: BP 121/53
[2016-05-27 03:00] VITALS: BP 137/85
[2016-05-27] MEDS: HYDROCODONE/APAP 10/325 TABLET. PO PRN ×3 (03:35→15:43)
[2016-05-27 05:54] LABS: BASO % 1 % (0-3); EOS % 1 % (0-3); HEMOGLOBIN 11.7 g/dL (12.0-15.5); LYMPH % 27 % (24-48); MEAN CORPUSCULAR HEMOGLOBIN 29 pg (25-35); MEAN CORPUSCULAR HGB CONC 33 g/dL (31-37); MEAN CORPUSCULAR VOLUME 90 fL (79-100); MONO % 11 % (0-9); NEUT % 61 % (31-73); PLATELET COUNT 400 x10^3/uL (140-400); RED CELL DISTRIBUTION WIDTH 15.7 % (11.5-14.5); WHITE BLOOD COUNT 3.6 x10^3/uL (4.0-11.0)
[2016-05-27 06:12] LABS: CALCIUM 8.6 mg/dL (8.5-10.1); CREATININE 0.8 mg/dL (0.6-1.0); POTASSIUM 5.1 mmol/L (3.5-5.1)
[2016-05-27 07:00] VITALS: BP 145/81
[2016-05-27] MEDS: GUAIFENESIN DM 200MG/20MG 10 ML SYRUP. PO SCH ×4 (08:46→21:23)
[2016-05-27] MEDS: PANTOPRAZOLE 40 MG TABLET. PO SCH (08:46)
[2016-05-27] MEDS: PAROXETINE 20 MG TABLET. PO SCH (08:47)
[2016-05-27] MEDS: DESVENLAFAXINE 50 MG TAB.ER.24H. PO SCH (08:47)
[2016-05-27] MEDS: GABAPENTIN 300 MG CAPSULE. PO SCH ×3 (08:47→21:24)
[2016-05-27] MEDS: DILTIAZEM HCL 120 MG CAP.ER.24H PO SCH (08:47)
--- NOTE | 2016-05-27 10:25 | PDOC ---
PROGRESS NOTES Chief Complaint Chief Complaint 1. HYponatremia, resolved 2, Gap metabolic acidosis, resolved 3. Acute renal failure no CKD< resolved 4. Morbid obesity 5. Hx interstitial cystitis - urine is clean 6. Polyuria, 7. URINARY INCONTINENCE SEVERE 8. Fibromyalgia History of Present Illness History of Present Illness Sounds nasal Complains of headache Told her her renal numbers look good IVF has been dcd by renal PT PRUITT SO MUCH URINARY INCONTINENCE SHE CANT MAKE IT TO BEDSIDE COMMODE FEW FEET AWAY CHUCS AT BEDSIDE Unquantifiable urine bec of severe incontinence but seems a lot of UO per staff CLAIMS started maybe this week when she started getting sick Told her all labs neg for infection - she claims she had similar sxs last time she had bacteremia PLAN: CBC again tho and 1 set BC Consult urology re severe incontinence Can check ESR If all else is neg home tho Dw pt and family Vitals Vitals Vital Signs Date Time Temp Pulse Resp B/P Pulse Ox O2 Delivery O2 Flow Rate FiO2 05/27/16 09:28 20 94 Room Air 05/27/16 08:47 103 145/81 05/27/16 07:00 98.6 98.6 Physical Exam General: Alert, Cooperative Heart: Regular rate, Normal S1, Normal S2 Abdomen: Normal bowel sounds, Soft, No tenderness Extremities: No clubbing Skin: No breakdown Labs LABS Laboratory Tests Test 05/27/16 05:30 White Blood Count 3.6x10^3/uL (4.0-11.0) Red Blood Count 4.00x10^6/uL (3.50-5.40) Hemoglobin 11.7g/dL (12.0-15.5) Hematocrit 36.0% (36.0-47.0) Mean Corpuscular Volume 90fL (79-100) Mean Corpuscular Hemoglobin 29pg (25-35) Mean Corpuscular Hemoglobin Concent 33g/dL (31-37) Red Cell Distribution Width 15.7% (11.5-14.5) Platelet Count 400x10^3/uL (140-400) Neutrophils (%) (Auto) 61% (31-73) Lymphocytes (%) (Auto) 27% (24-48) Monocytes (%) (Auto) 11% (0-9) Eosinophils (%) (Auto) 1% (0-3) Basophils (%) (Auto) 1% (0-3) Neutrophils # (Auto) 2.2x10^3uL (1.8-7.7) Lymphocytes # (Auto) 1.0x10^3/uL (1.0-4.8) Monocytes # (Auto) 0.4x10^3/uL (0.0-1.1) Eosinophils # (Auto) 0.0x10^3/uL (0.0-0.7) Basophils # (Auto) 0.0x10^3/uL (0.0-0.2) Sodium Level 142mmol/L (136-145) Potassium Level 5.1mmol/L (3.5-5.1) Chloride Level 107mmol/L (98-107) Carbon Dioxide Level 26mmol/L (21-32) Anion Gap 9 (6-14) Blood Urea Nitrogen 17mg/dL (7-20) Creatinine 0.8mg/dL (0.6-1.0) Estimated GFR (Cockcroft-Gault) 75.0 Glucose Level 115mg/dL (70-99) Calcium Level 8.6mg/dL (8.5-10.1) Review of Systems Review of Systems headache, incontinence, feeling unwell Assessment and Plan Assessmemt and Plan Problems Medical Problems: (1) ARF (acute renal failure) Status: Acute (2) Dehydration Status: Acute (3) Hyponatremia Status: Acute Problems: Comment Review of Relevant I have reviewed the following items frank (where applicable) has been applied. Labs Laboratory Tests Test 05/26/16 00:05 05/26/16 00:40 05/27/16 05:30 White Blood Count 4.6x10^3/uL (4.0-11.0) 3.6x10^3/uL (4.0-11.0) Red Blood Count 4.16x10^6/uL (3.50-5.40) 4.00x10^6/uL (3.50-5.40) Hemoglobin 12.3g/dL (12.0-15.5) 11.7g/dL (12.0-15.5) Hematocrit 37.8% (36.0-47.0) 36.0% (36.0-47.0) Mean Corpuscular Volume 91fL (79-100) 90fL (79-100) Mean Corpuscular Hemoglobin 30pg (25-35) 29pg (25-35) Mean Corpuscular Hemoglobin Concent 33g/dL (31-37) 33g/dL (31-37) Red Cell Distribution Width 15.6% (11.5-14.5) 15.7% (11.5-14.5) Platelet Count 374x10^3/uL (140-400) 400x10^3/uL (140-400) Neutrophils (%) (Auto) 67% (31-73) 61% (31-73) Lymphocytes (%) (Auto) 22% (24-48) 27% (24-48) Monocytes (%) (Auto) 10% (0-9) 11% (0-9) Eosinophils (%) (Auto) 0% (0-3) 1% (0-3) Basophils (%) (Auto) 1% (0-3) 1% (0-3) Neutrophils # (Auto) 3.1x10^3uL (1.8-7.7) 2.2x10^3uL (1.8-7.7) Lymphocytes # (Auto) 1.0x10^3/uL (1.0-4.8) 1.0x10^3/uL (1.0-4.8) Monocytes # (Auto) 0.5x10^3/uL (0.0-1.1) 0.4x10^3/uL (0.0-1.1) Eosinophils # (Auto) 0.0x10^3/uL (0.0-0.7) 0.0x10^3/uL (0.0-0.7) Basophils # (Auto) 0.0x10^3/uL (0.0-0.2) 0.0x10^3/uL (0.0-0.2) Urine Collection Type U cath Urine Color Yellow Urine Clarity Turbid Urine pH 5.0 Urine Specific [place] 1.025 Urine Protein 30mg/dL (NEG-TRACE) Urine Glucose (UA) Negativemg/dL (NEG) Urine Ketones (Stick) Negativemg/dL (NEG) Urine Blood Moderate (NEG) Urine Nitrite Negative (NEG) Urine Bilirubin Negative (NEG) Urine Urobilinogen Dipstick 0.2mg/dL (0.2 mg/dL) Urine Leukocyte Esterase Negative (NEG) Urine RBC 3-5/HPF (0-2) Urine WBC 0/HPF (0-4) Urine Squamous Epithelial Cells Few/LPF Urine Amorphous Sediment Present/HPF Urine Bacteria 0/HPF (0-FEW) Urine Mucus Mod/LPF Influenza Type A Antigen Negative (NEGATIVE) Influenza Type B Antigen Negative (NEGATIVE) Sodium Level 130mmol/L (136-145) 142mmol/L (136-145) Potassium Level 3.7mmol/L (3.5-5.1) 5.1mmol/L (3.5-5.1) Chloride Level 92mmol/L (98-107) 107mmol/L (98-107) Carbon Dioxide Level 21mmol/L (21-32) 26mmol/L (21-32) Anion Gap 17 (6-14) 9 (6-14) Blood Urea Nitrogen 42mg/dL (7-20) 17mg/dL (7-20) Creatinine 3.6mg/dL (0.6-1.0) 0.8mg/dL (0.6-1.0) Estimated GFR (Cockcroft-Gault) 13.2 75.0 BUN/Creatinine Ratio 12 (6-20) Glucose Level 129mg/dL (70-99) 115mg/dL (70-99) Calcium Level 8.8mg/dL (8.5-10.1) 8.6mg/dL (8.5-10.1) Total Bilirubin 0.2mg/dL (0.2-1.0) Aspartate Amino Transf (AST/SGOT) 54U/L (15-37) Alanine Aminotransferase (ALT/SGPT) 47U/L (14-59) Alkaline Phosphatase 120U/L (46-116) Total Protein 6.9g/dL (6.4-8.2) Albumin 3.5g/dL (3.4-5.0) Albumin/Globulin Ratio 1.0 (1.0-1.7) Laboratory Tests Test 05/27/16 05:30 White Blood Count 3.6x10^3/uL (4.0-11.0) Red Blood Count 4.00x10^6/uL (3.50-5.40) Hemoglobin 11.7g/dL (12.0-15.5) Hematocrit 36.0% (36.0-47.0) Mean Corpuscular Volume 90fL (79-100) Mean Corpuscular Hemoglobin 29pg (25-35) Mean Corpuscular Hemoglobin Concent 33g/dL (31-37) Red Cell Distribution Width 15.7% (11.5-14.5) Platelet Count 400x10^3/uL (140-400) Neutrophils (%) (Auto) 61% (31-73) Lymphocytes (%) (Auto) 27% (24-48) Monocytes (%) (Auto) 11% (0-9) Eosinophils (%) (Auto) 1% (0-3) Basophils (%) (Auto) 1% (0-3) Neutrophils # (Auto) 2.2x10^3uL (1.8-7.7) Lymphocytes # (Auto) 1.0x10^3/uL (1.0-4.8) Monocytes # (Auto) 0.4x10^3/uL (0.0-1.1) Eosinophils # (Auto) 0.0x10^3/uL (0.0-0.7) Basophils # (Auto) 0.0x10^3/uL (0.0-0.2) Sodium Level 142mmol/L (136-145) Potassium Level 5.1mmol/L (3.5-5.1) Chloride Level 107mmol/L (98-107) Carbon Dioxide Level 26mmol/L (21-32) Anion Gap 9 (6-14) Blood Urea Nitrogen 17mg/dL (7-20) Creatinine 0.8mg/dL (0.6-1.0) Estimated GFR (Cockcroft-Gault) 75.0 Glucose Level 115mg/dL (70-99) Calcium Level 8.6mg/dL (8.5-10.1) Medications Current Medications Sodium Chloride (Iv Sodium Chloride 0.9% 1000ml Bag) 1,000 ml @ 1,000 mls/hr 1X ONCE IV Last administered on 05/26/16 00:30; Start 05/26/16 at 00:30; Stop 05/26/16 at 01:29; Status DC Ondansetron HCl (Zofran) 4 mg 1X ONCE IV Last administered on 05/26/16 00:30; Start 05/26/16 at 00:30; Stop 05/26/16 at 00:31; Status DC Ketorolac Tromethamine (Toradol) 15 mg 1X ONCE IV Last administered on 00:30; Start 05/26/16 at 00:30; Stop 05/26/16 at 00:31; Status DC Ondansetron HCl 4 mg 4 mg PRN Q8HRS PRN IV NAUSEA/VOMITING; Start 05/26/16 at 02 :00; Stop 05/26/16 at 09:07; Status DC Sodium Chloride (Iv Sodium Chloride 0.9% 1000ml Bag) 1,000 ml @ 125 mls/hr Q8H IV Last administered on 05/26/16 22:13; Start 05/26/16 at 01:58; Stop 05/27/16 at 01:57; Status DC Acetaminophen (Tylenol) 650 mg PRN Q4HRS PRN PO FEVER Last administered on 22:55; Start 05/26/16 at 02:00; Stop 05/27/16 at 01:59; Status DC Ondansetron HCl (Zofran) 4 mg PRN Q6HRS PRN IV NAUSEA/VOMITING; Start 05/26/16 at 09:05 Aripiprazole (Abilify) 5 mg QHS PO Last administered on 05/26/16 20:12; Start 05/26/16 at 21:00 Diltiazem HCl (Cardizem 24hr Cd) 120 mg DAILY PO Last administered on 05/27/16 08:47; Start 05/26/16 at 10:00 Gabapentin (Neurontin) 300 mg BID@09,15 PO Last administered on 05/27/16 08:47 ; Start 05/26/16 at 10:00 Acetaminophen/ Hydrocodone Bitart (Lortab 10/325) 1 tab PRN Q6HRS PRN PO PAIN Last administered on 05/27/16 09:28; Start 05/26/16 at 09:15 Paroxetine HCl (Paxil) 20 mg DAILY PO Last administered on 05/27/16 08:47; Start 05/26/16 at 10:00 Zolpidem Tartrate (Ambien) 5 mg QHS PO Last administered on 05/26/16 20:12; Start 05/26/16 at 21:00 Alprazolam (Xanax) 2 mg PRN BID PRN PO ANXIETY / AGITATION; Start 05/26/16 at 09 :30 Carisoprodol (Soma) 350 mg PRN 1X PRN PO MUSCLE SPASMS; Start 05/26/16 at 09:30 Desvenlafaxine Succinate (Pristiq Er) 100 mg DAILY PO Last administered on 08:47; Start 05/26/16 at 10:00 Non-Formulary Medication 5 mg BID PO ; Start 05/26/16 at 21:00; Status UNV Gabapentin (Neurontin) 600 mg QHS PO Last administered on 05/26/16 20:12; Start 05/26/16 at 21:00 Mirtazapine (Remeron) 45 mg QHS PO Last administered on 05/26/16 20:11; Start 05/26/16 at 21:00 Pantoprazole Sodium (Protonix) 40 mg DAILYAC PO Last administered on 05/27/16 08:46; Start 05/26/16 at 10:00 Trazodone HCl (Desyrel) 300 mg QHS PO Last administered on 05/26/16 20:12; Start 05/26/16 at 21:00 Guaifenesin (Robitussin Dm) 10 ml PRN Q6HRS PRN PO COUGH Last administered on 16:34; Start 05/26/16 at 16:30; Stop 05/26/16 at 23:00; Status DC Guaifenesin (Robitussin Dm) 10 ml QID PO Last administered on 05/27/16 08:46; Start 05/26/16 at 17:30 Active Scripts Active Reported Abilify (Aripiprazole) 5 Mg Tablet 5 Mg PO QHS Soma (Carisoprodol) 250 Mg Tablet 250 Mg PO 1X PRN PRN Ambien (Zolpidem Tartrate) 5 Mg Tablet 1 Tab PO QHS Trazodone Hcl 300 Mg Tablet 1 Tab PO QHS Mirtazapine 45 Mg Tablet 1 Tab PO QHS Gabapentin 600 Mg Tablet 600 Mg PO QHS Gabapentin 300 Mg Capsule 300 Mg PO BID Xanax (Alprazolam) 2 Mg Tablet 1 Tab PO BID PRN Hydrocodone-Apap 10-325 (Hydrocodone Bit/Acetaminophen) 1 Each Tablet 1 Tab PO PRN Q6HRS PRN Adderall 5 Mg Tablet (Dextroamphetamine/Amphetamine) 5 Mg Tablet 5 Mg PO BID Prilosec Otc (Omeprazole Magnesium) 20 Mg Tablet.dr 1 Tab PO DAILY Diltiazem 24HR Cd (Diltiazem Hcl) 120 Mg Cap.er.24h 1 Cap PO DAILY Lisinopril-Hctz 20-25 Mg Tab (Lisinopril/Hydrochlorothiazide) 1 Each Tablet 1 Tab PO DAILY Paxil (Paroxetine Hcl) 20 Mg Tablet 1 Tab PO DAILY Pristiq Er (Desvenlafaxine Succinate) 100 Mg Tab.er.24h 1 Tab PO DAILY Vitals/I & O Vital Sign - Last 24 Hours 05/26/16 05/26/16 05/26/16 05/26/16 10:50 11:00 15:00 17:14 Temp 97.7 98.1 97.7 98.1 Pulse 81 88 Resp 20 20 B/P 107/40 117/49 Pulse Ox 93 93 92 O2 Delivery Room Air Room Air Room Air 05/26/16 05/26/16 05/26/16 05/26/16 19:00 20:00 20:12 23:00 Temp 96.8 98.6 96.8 98.6 Pulse 89 102 Resp 20 20 B/P 124/67 121/53 Pulse Ox 90 92 O2 Delivery Room Air Room Air Room Air Room Air 05/27/16 05/27/16 05/27/16 05/27/16 03:00 03:35 06:03 07:00 Temp 98.1 98.6 98.1 98.6 Pulse 81 103 Resp 20 20 B/P 137/85 145/81 Pulse Ox 91 94 O2 Delivery Room Air Room Air Room Air Room Air 05/27/16 05/27/16 05/27/16 08:00 08:47 09:28 Pulse 103 Resp 20 B/P 145/81 Pulse Ox 94 O2 Delivery Room Air Room Air Intake and Output 05/26/16 05/26/16 05/27/16 15:00 23:00 07:00 Intake Total 1124 ml 300 ml 0 ml Output Total 200 ml 150 ml Balance 1124 ml 100 ml -150 ml JOSE WONG MD May 27, 2016 10:25
[2016-05-27 11:20] VITALS: BP 139/75
--- NOTE | 2016-05-27 13:09 | RAD ---
Examination: Ultrasound kidneys History: History of elevated creatinine, dehydration. Comparison: None available Findings: The right kidney measures 12.0 x 5.0 x 6.5 cm. The left kidney measures 10.7 x 6.4 x 4.8 cm. There is a 1.5 cm cystic structure in the right kidney. The urinary bladder is empty. Impression: 1. A 1.5 cm cyst is identified in the right kidney. Otherwise unremarkable exam.
[2016-05-27] MEDS: CETIRIZINE HCL 10 MG TABLET PO SCH (13:34)
[2016-05-27 15:27] VITALS: BP 125/59
[2016-05-27 19:00] VITALS: BP 125/68
[2016-05-27] MEDS: traZODone 100 MG TABLET. PO SCH (21:23)
[2016-05-27] MEDS: MIRTAZAPINE 15 MG TABLET PO SCH (21:23)
[2016-05-27] MEDS: ZOLPIDEM 5 MG TABLET. PO SCH (21:24)
[2016-05-27] MEDS: ARIPIPRAZOLE 5 MG TABLET. PO SCH (21:24)
[2016-05-27 23:00] VITALS: BP 119/58
[2016-05-28 03:08] VITALS: BP 116/66
[2016-05-28 05:28] LABS: BASO % 1 % (0-3); EOS % 2 % (0-3); HEMATOCRIT 34.4 % (36.0-47.0); LYMPH # 1.6 x10^3/uL (1.0-4.8); LYMPH % 45 % (24-48); MEAN CORPUSCULAR HEMOGLOBIN 29 pg (25-35); MEAN CORPUSCULAR HGB CONC 32 g/dL (31-37); MEAN CORPUSCULAR VOLUME 92 fL (79-100); MONO % 12 % (0-9); NEUT % 41 % (31-73); PLATELET COUNT 342 x10^3/uL (140-400); RED BLOOD COUNT 3.74 x10^6/uL (3.50-5.40); RED CELL DISTRIBUTION WIDTH 15.9 % (11.5-14.5); WHITE BLOOD COUNT 3.5 x10^3/uL (4.0-11.0)
[2016-05-28 07:00] VITALS: BP 116/64
[2016-05-28] MEDS: GUAIFENESIN DM 200MG/20MG 10 ML SYRUP. PO SCH ×2 (08:17→13:53)
[2016-05-28] MEDS: PAROXETINE 20 MG TABLET. PO SCH (08:17)
[2016-05-28] MEDS: DESVENLAFAXINE 50 MG TAB.ER.24H. PO SCH (08:18)
[2016-05-28] MEDS: GABAPENTIN 300 MG CAPSULE. PO SCH ×2 (08:18→13:53)
[2016-05-28] MEDS: PANTOPRAZOLE 40 MG TABLET. PO SCH (08:18)
[2016-05-28] MEDS: CETIRIZINE HCL 10 MG TABLET PO SCH (08:18)
[2016-05-28] MEDS: DILTIAZEM HCL 120 MG CAP.ER.24H PO SCH (08:23)
--- NOTE | 2016-05-28 09:53 | PDOC2 ---
UROLOGY CONSULT Date of Admission DATE: 05/28/16 TIME: 09:23 Reason for Consult: Severe Incontinence, Interstitial Cystitis HISTORY OF KIDNEY PROBLEMS: No (This admission for acute renal failure, but no other known kidney disease/history) HISTORY OF INCONTINENCE: Yes HISTORY FREQUENCY/NOCTURIA: Yes (worse when stressed) HISTORY OF CANCER: No Chief Complaint Incontinence, Interstitial Cystitis Source: Patient Reason for Visit: Incontinence, Interstitial Cystitis Pt was admitted for acute renal failure. She has a long standing history of IC and also incontinence when she is "stressed or not feeling well." Outside the hospital her incontinence is not nearly as bad, soaking only 1-2 pads per day. Since hospitalized, she has been "peeing all over." She is a , all vaginal births, 1 miscarriage, one . No surgeries. She took Elmiron for a long time per Dr. Garcia, urologist in [place], but stopped taking this when she lost her insurance a few years ago. She has recently gained medicare and should be able to resume this medicine. She intends to follow up with Dr. Garcia at discharge regarding her I.C and incontinence ROS Patient seen and examined Current Medications Current Medications Sodium Chloride (Iv Sodium Chloride 0.9% 1000ml Bag) 1,000 ml @ 1,000 mls/hr 1X ONCE IV Last administered on 05/26/16 00:30; Start 05/26/16 at 00:30; Stop 05/26/16 at 01:29; Status DC Ondansetron HCl (Zofran) 4 mg 1X ONCE IV Last administered on 05/26/16 00:30; Start 05/26/16 at 00:30; Stop 05/26/16 at 00:31; Status DC Ketorolac Tromethamine (Toradol) 15 mg 1X ONCE IV Last administered on 00:30; Start 05/26/16 at 00:30; Stop 05/26/16 at 00:31; Status DC Ondansetron HCl 4 mg 4 mg PRN Q8HRS PRN IV NAUSEA/VOMITING; Start 05/26/16 at 02 :00; Stop 05/26/16 at 09:07; Status DC Sodium Chloride (Iv Sodium Chloride 0.9% 1000ml Bag) 1,000 ml @ 125 mls/hr Q8H IV Last administered on 05/26/16 22:13; Start 05/26/16 at 01:58; Stop 05/27/16 at 01:57; Status DC Acetaminophen (Tylenol) 650 mg PRN Q4HRS PRN PO FEVER Last administered on 22:55; Start 05/26/16 at 02:00; Stop 05/27/16 at 01:59; Status DC Ondansetron HCl (Zofran) 4 mg PRN Q6HRS PRN IV NAUSEA/VOMITING; Start 05/26/16 at 09:05 Aripiprazole (Abilify) 5 mg QHS PO Last administered on 05/27/16 21:24; Start 05/26/16 at 21:00 Diltiazem HCl (Cardizem 24hr Cd) 120 mg DAILY PO Last administered on 05/28/16 08:23; Start 05/26/16 at 10:00 Gabapentin (Neurontin) 300 mg BID@,15 PO Last administered on 05/28/16 08:18 ; Start 05/26/16 at 10:00 Acetaminophen/ Hydrocodone Bitart (Lortab 10/325) 1 tab PRN Q6HRS PRN PO PAIN Last administered on 05/27/16 15:43; Start 05/26/16 at 09:15 Paroxetine HCl (Paxil) 20 mg DAILY PO Last administered on 05/28/16 08:17; Start 05/26/16 at 10:00 Zolpidem Tartrate (Ambien) 5 mg QHS PO Last administered on 05/27/16 21:24; Start 05/26/16 at 21:00 Alprazolam (Xanax) 2 mg PRN BID PRN PO ANXIETY / AGITATION; Start 05/26/16 at 09 :30 Carisoprodol (Soma) 350 mg PRN 1X PRN PO MUSCLE SPASMS Last administered on 05/27 21:24; Start 05/26/16 at 09:30; Stop 05/27/16 at 21:25; Status DC Desvenlafaxine Succinate (Pristiq Er) 100 mg DAILY PO Last administered on 08:18; Start 05/26/16 at 10:00 Non-Formulary Medication 5 mg BID PO ; Start 05/26/16 at 21:00; Stop 05/27/16 at 16:13; Status DC Gabapentin (Neurontin) 600 mg QHS PO Last administered on 05/27/16 21:24; Start 05/26/16 at 21:00 Mirtazapine (Remeron) 45 mg QHS PO Last administered on 05/27/16 21:23; Start 05/26/16 at 21:00 Pantoprazole Sodium (Protonix) 40 mg DAILYAC PO Last administered on 05/28/16 08:18; Start 05/26/16 at 10:00 Trazodone HCl (Desyrel) 300 mg QHS PO Last administered on 05/27/16 21:23; Start 05/26/16 at 21:00 Guaifenesin (Robitussin Dm) 10 ml PRN Q6HRS PRN PO COUGH Last administered on 16:34; Start 05/26/16 at 16:30; Stop 05/26/16 at 23:00; Status DC Guaifenesin (Robitussin Dm) 10 ml QID PO Last administered on 05/28/16 08:17; Start 05/26/16 at 17:30 Cetirizine HCl (Zyrtec) 10 mg DAILY PO Last administered on 05/28/16 08:18; Start 05/27/16 at 10:30 Active Scripts Active Reported Abilify (Aripiprazole) 5 Mg Tablet 5 Mg PO QHS Soma (Carisoprodol) 250 Mg Tablet 250 Mg PO 1X PRN PRN Ambien (Zolpidem Tartrate) 5 Mg Tablet 1 Tab PO QHS Trazodone Hcl 300 Mg Tablet 1 Tab PO QHS Mirtazapine 45 Mg Tablet 1 Tab PO QHS Gabapentin 600 Mg Tablet 600 Mg PO QHS Gabapentin 300 Mg Capsule 300 Mg PO BID Xanax (Alprazolam) 2 Mg Tablet 1 Tab PO BID PRN Hydrocodone-Apap 10-325 (Hydrocodone Bit/Acetaminophen) 1 Each Tablet 1 Tab PO PRN Q6HRS PRN Adderall 5 Mg Tablet (Dextroamphetamine/Amphetamine) 5 Mg Tablet 5 Mg PO BID Prilosec Otc (Omeprazole Magnesium) 20 Mg Tablet.dr 1 Tab PO DAILY Diltiazem 24HR Cd (Diltiazem Hcl) 120 Mg Cap.er.24h 1 Cap PO DAILY Lisinopril-Hctz 20-25 Mg Tab (Lisinopril/Hydrochlorothiazide) 1 Each Tablet 1 Tab PO DAILY Paxil (Paroxetine Hcl) 20 Mg Tablet 1 Tab PO DAILY Pristiq Er (Desvenlafaxine Succinate) 100 Mg Tab.er.24h 1 Tab PO DAILY Allergies: Coded Allergies: No Known Drug Allergies (Unverified , 05/26/16) Physical Examination GEN: NAD HEENT: OP clear CV: S1S2 RESP: CTAB without wheezing, rhonchi, or crackles ABD: NABS, SNT/ND, Obese : no perineal excoriation, although patient was wet from incontinence when examined EXT: No edema NEURO: AAO x 3 LABS: creatinine has normalized, despite being elevated on admission. Urine dip shows trace blood; no signs of infection RADIOLOGY: Renal and bladder Ultrasound shows small kidney cyst, otherwise WNL DOES THIS PATIENT HAVE URINARY: No VITALS Vital Signs Date Time Temp Pulse Resp B/P Pulse Ox O2 Delivery O2 Flow Rate FiO2 05/28/16 08:23 20 116/64 05/28/16 08:00 Room Air 05/28/16 07:00 97.5 20 95 97.5 Labs Laboratory Tests Test 05/27/16 05:30 05/27/16 10:50 05/28/16 04:45 White Blood Count 3.6x10^3/uL (4.0-11.0) 3.5x10^3/uL (4.0-11.0) Red Blood Count 4.00x10^6/uL (3.50-5.40) 3.74x10^6/uL (3.50-5.40) Hemoglobin 11.7g/dL (12.0-15.5) 11.0g/dL (12.0-15.5) Hematocrit 36.0% (36.0-47.0) 34.4% (36.0-47.0) Mean Corpuscular Volume 90fL (79-100) 92fL (79-100) Mean Corpuscular Hemoglobin 29pg (25-35) 29pg (25-35) Mean Corpuscular Hemoglobin Concent 33g/dL (31-37) 32g/dL (31-37) Red Cell Distribution Width 15.7% (11.5-14.5) 15.9% (11.5-14.5) Platelet Count 400x10^3/uL (140-400) 342x10^3/uL (140-400) Neutrophils (%) (Auto) 61% (31-73) 41% (31-73) Lymphocytes (%) (Auto) 27% (24-48) 45% (24-48) Monocytes (%) (Auto) 11% (0-9) 12% (0-9) Eosinophils (%) (Auto) 1% (0-3) 2% (0-3) Basophils (%) (Auto) 1% (0-3) 1% (0-3) Neutrophils # (Auto) 2.2x10^3uL (1.8-7.7) 1.4x10^3uL (1.8-7.7) Lymphocytes # (Auto) 1.0x10^3/uL (1.0-4.8) 1.6x10^3/uL (1.0-4.8) Monocytes # (Auto) 0.4x10^3/uL (0.0-1.1) 0.4x10^3/uL (0.0-1.1) Eosinophils # (Auto) 0.0x10^3/uL (0.0-0.7) 0.1x10^3/uL (0.0-0.7) Basophils # (Auto) 0.0x10^3/uL (0.0-0.2) 0.0x10^3/uL (0.0-0.2) Sodium Level 142mmol/L (136-145) Potassium Level 5.1mmol/L (3.5-5.1) Chloride Level 107mmol/L (98-107) Carbon Dioxide Level 26mmol/L (21-32) Anion Gap 9 (6-14) Blood Urea Nitrogen 17mg/dL (7-20) Creatinine 0.8mg/dL (0.6-1.0) Estimated GFR (Cockcroft-Gault) 75.0 Glucose Level 115mg/dL (70-99) Calcium Level 8.6mg/dL (8.5-10.1) Erythrocyte Sedimentation Rate 33 (0-25) Laboratory Tests Test 05/27/16 10:50 05/28/16 04:45 Erythrocyte Sedimentation Rate 33 (0-25) White Blood Count 3.5x10^3/uL (4.0-11.0) Red Blood Count 3.74x10^6/uL (3.50-5.40) Hemoglobin 11.0g/dL (12.0-15.5) Hematocrit 34.4% (36.0-47.0) Mean Corpuscular Volume 92fL (79-100) Mean Corpuscular Hemoglobin 29pg (25-35) Mean Corpuscular Hemoglobin Concent 32g/dL (31-37) Red Cell Distribution Width 15.9% (11.5-14.5) Platelet Count 342x10^3/uL (140-400) Neutrophils (%) (Auto) 41% (31-73) Lymphocytes (%) (Auto) 45% (24-48) Monocytes (%) (Auto) 12% (0-9) Eosinophils (%) (Auto) 2% (0-3) Basophils (%) (Auto) 1% (0-3) Neutrophils # (Auto) 1.4x10^3uL (1.8-7.7) Lymphocytes # (Auto) 1.6x10^3/uL (1.0-4.8) Monocytes # (Auto) 0.4x10^3/uL (0.0-1.1) Eosinophils # (Auto) 0.1x10^3/uL (0.0-0.7) Basophils # (Auto) 0.0x10^3/uL (0.0-0.2) Assessment/Plan Start Elmiron 100m tab TID in house. Script given for 30 days worth; refills should come from Dr. Garcia/Sher[facility] urologist Renal and Bladder US negative Follow up with Dr. Garcia/[facility] Urologist within 30 days of discharge. Hematuria most likely IC related; pt still should follow up with Urologist within 30 days Discussed IC dietary measures with patient Discussed Time void every 1-1.5 hours while awake to decrease incontinence BURAK COLE APRN May 28, 2016 09:40
[2016-05-28] MEDS ORDERED: PENT100C PO (10:43)
--- NOTE | 2016-05-28 10:45 | PDOC3 ---
Discharge Summary Visit Information Date of Admission: May 26, 2016 Date of Discharge: May 28, 2016 Admitting Diagnosis Comment: 1. HYponatremia, resolved 2, Gap metabolic acidosis, resolved 3. Acute renal failure no CKD< resolved 4. Morbid obesity 5. Hx interstitial cystitis - urine is clean 6. Polyuria, 7. URINARY INCONTINENCE SEVERE 8. Fibromyalgia Final Diagnosis Problems Medical Problems: (1) ARF (acute renal failure) Status: Acute (2) Dehydration Status: Acute (3) Hyponatremia Status: Acute (4) Incontinence Status: Acute (5) Interstitial cystitis Status: Acute (6) Urinary incontinence Status: Acute Brief Hospital Course Allergies Allergies Coded Allergies Type Severity Reaction Last Updated Verified No Known Drug Allergies 05/26/16 No Vital Signs Vital Signs Date Time Temp Pulse Resp B/P Pulse Ox O2 Delivery O2 Flow Rate FiO2 05/28/16 08:23 20 116/64 05/28/16 08:00 Room Air 05/28/16 07:00 97.5 20 95 97.5 Lab Results Laboratory Tests Test 05/27/16 05:30 05/27/16 10:50 05/28/16 04:45 White Blood Count 3.6x10^3/uL (4.0-11.0) 3.5x10^3/uL (4.0-11.0) Red Blood Count 4.00x10^6/uL (3.50-5.40) 3.74x10^6/uL (3.50-5.40) Hemoglobin 11.7g/dL (12.0-15.5) 11.0g/dL (12.0-15.5) Hematocrit 36.0% (36.0-47.0) 34.4% (36.0-47.0) Mean Corpuscular Volume 90fL (79-100) 92fL (79-100) Mean Corpuscular Hemoglobin 29pg (25-35) 29pg (25-35) Mean Corpuscular Hemoglobin Concent 33g/dL (31-37) 32g/dL (31-37) Red Cell Distribution Width 15.7% (11.5-14.5) 15.9% (11.5-14.5) Platelet Count 400x10^3/uL (140-400) 342x10^3/uL (140-400) Neutrophils (%) (Auto) 61% (31-73) 41% (31-73) Lymphocytes (%) (Auto) 27% (24-48) 45% (24-48) Monocytes (%) (Auto) 11% (0-9) 12% (0-9) Eosinophils (%) (Auto) 1% (0-3) 2% (0-3) Basophils (%) (Auto) 1% (0-3) 1% (0-3) Neutrophils # (Auto) 2.2x10^3uL (1.8-7.7) 1.4x10^3uL (1.8-7.7) Lymphocytes # (Auto) 1.0x10^3/uL (1.0-4.8) 1.6x10^3/uL (1.0-4.8) Monocytes # (Auto) 0.4x10^3/uL (0.0-1.1) 0.4x10^3/uL (0.0-1.1) Eosinophils # (Auto) 0.0x10^3/uL (0.0-0.7) 0.1x10^3/uL (0.0-0.7) Basophils # (Auto) 0.0x10^3/uL (0.0-0.2) 0.0x10^3/uL (0.0-0.2) Sodium Level 142mmol/L (136-145) Potassium Level 5.1mmol/L (3.5-5.1) Chloride Level 107mmol/L (98-107) Carbon Dioxide Level 26mmol/L (21-32) Anion Gap 9 (6-14) Blood Urea Nitrogen 17mg/dL (7-20) Creatinine 0.8mg/dL (0.6-1.0) Estimated GFR (Cockcroft-Gault) 75.0 Glucose Level 115mg/dL (70-99) Calcium Level 8.6mg/dL (8.5-10.1) Erythrocyte Sedimentation Rate 33 (0-25) Laboratory Tests Test 05/27/16 10:50 05/28/16 04:45 Erythrocyte Sedimentation Rate 33 (0-25) White Blood Count 3.5x10^3/uL (4.0-11.0) Red Blood Count 3.74x10^6/uL (3.50-5.40) Hemoglobin 11.0g/dL (12.0-15.5) Hematocrit 34.4% (36.0-47.0) Mean Corpuscular Volume 92fL (79-100) Mean Corpuscular Hemoglobin 29pg (25-35) Mean Corpuscular Hemoglobin Concent 32g/dL (31-37) Red Cell Distribution Width 15.9% (11.5-14.5) Platelet Count 342x10^3/uL (140-400) Neutrophils (%) (Auto) 41% (31-73) Lymphocytes (%) (Auto) 45% (24-48) Monocytes (%) (Auto) 12% (0-9) Eosinophils (%) (Auto) 2% (0-3) Basophils (%) (Auto) 1% (0-3) Neutrophils # (Auto) 1.4x10^3uL (1.8-7.7) Lymphocytes # (Auto) 1.6x10^3/uL (1.0-4.8) Monocytes # (Auto) 0.4x10^3/uL (0.0-1.1) Eosinophils # (Auto) 0.1x10^3/uL (0.0-0.7) Basophils # (Auto) 0.0x10^3/uL (0.0-0.2) Brief Hospital Course Ms. Knight is a 51 old Morbidly obese ACucasian female admitted for SHAUNA, hyponatremia, terated with IVF and numbers better, Crea back to normal,. COurse remarkable for severe incontinence, hx IC (interstitial cystitis), urine is clean, used to ff up with own urologist, was on elmiron but lost insurance so has been off of it, Urology consulted, restarted elmiron, advised to void every 1-2 hrs as she can, Undersatnds, ready to dc today Ff up: your urologist Prco: none COnults; renal and urology dc 31 mins > 50% counselling Pt seen and examined Discharge Information Condition at Discharge: Improved, Stable Follow Up: Weeks (urology) Disposition/Orders: D/C to Home Scheduled Aripiprazole (Abilify) 5 MG PO QHS (Reported) Desvenlafaxine Succinate (Pristiq Er) 1 TAB PO DAILY (Reported) Dextroamphetamine/Amphetamine (Adderall 5 Mg Tablet) 5 MG PO BID (Reported) Diltiazem Hcl (Diltiazem 24HR Cd) 1 CAP PO DAILY (Reported) Gabapentin (Gabapentin) 300 MG PO BID (Reported) Gabapentin (Gabapentin) 600 MG PO QHS (Reported) Lisinopril/Hydrochlorothiazide (Lisinopril-Hctz 20-25 Mg Tab) 1 TAB PO DAILY ( Reported) Mirtazapine (Mirtazapine) 1 TAB PO QHS (Reported) Omeprazole Magnesium (Prilosec Otc) 1 TAB PO DAILY (Reported) Paroxetine Hcl (Paxil) 1 TAB PO DAILY (Reported) Trazodone Hcl (Trazodone Hcl) 1 TAB PO QHS (Reported) Zolpidem Tartrate (Ambien) 1 TAB PO QHS (Reported) Scheduled PRN Alprazolam (Xanax) 1 TAB PO BID PRN PRN ANXIETY / AGITATION (Reported) Carisoprodol (Soma) 250 MG PO 1X PRN PRN PRN MUSCLE SPASMS (Reported) Hydrocodone Bit/Acetaminophen (Hydrocodone-Apap 10-325 ) 1 TAB PO PRN Q6HRS PRN PRN PAIN (Reported) JOSE WONG MD May 28, 2016 10:45
[2016-05-28 10:53] VITALS: BP 108/57
[2016-05-28] MEDS ORDERED: PENTOSAN POLYSULFATE SODIUM 100 MG CAPSULE. PO SCH (11:30)
== END 2016-05-28 13:57 | disposition home or self-care (01) | DRG 640 ==
LOC: ER 23:28 → 6 SOUTH 05-26 01:55 → 5 NORTH 05-26 15:06
PROVIDERS: ADMIT Internal Medicine; ATTEND Internal Medicine
DX: E87.1 Hypo-osmolality and hyponatremia (principal); N17.0 Acute kidney failure with tubular necrosis; I13.0 Hypertensive heart and chronic kidney disease with heart failure and stage 1 through stage 4 chronic kidney disease, or unspecified chronic kidney disease; Z68.44 Body mass index [BMI] 60.0-69.9, adult; E87.2 Acidosis; E66.01 Morbid (severe) obesity due to excess calories; F41.0 Panic disorder [episodic paroxysmal anxiety]; I50.9 Heart failure, unspecified; M79.7 Fibromyalgia; N18.9 Chronic kidney disease, unspecified; F32.9 Major depressive disorder, single episode, unspecified; R35.8 Other polyuria; F41.9 Anxiety disorder, unspecified; R32 Unspecified urinary incontinence; G47.00 Insomnia, unspecified; N30.11 Interstitial cystitis (chronic) with hematuria; Z96.652 Presence of left artificial knee joint; Z98.84 Bariatric surgery status; Z98.51 Tubal ligation status
CPT/HCPCS: 36415; 71010; 76770; 80048; 80053; 81001; 83935; 85027; 85651; 87040; 87804; 93005; 96361; 96374; 96375; J1885; J2405; J7030; 97116; 99285-25